=== PATIENT | female | born 1980 | race African-American/Black ===

== ENCOUNTER 2023-06-21 08:33 | Emergency (ER) | payer SELFPAY ==
[2023-06-21 10:38] LABS: CORONAVIRUS COVID-19 NAA NEGATIVE (NEGATIVE); INFLUENZA A NAA NEGATIVE (NEGATIVE); INFLUENZA B NAA POSITIVE (NEGATIVE); RESPIRATORY SYNCYTIAL VIR NAA NEGATIVE (NEGATIVE)
[2023-06-21] MEDS ORDERED: Ondansetron 4 MG/2 ML SDV IVPUSH ONE (10:46)
[2023-06-21] MEDS ORDERED: Sodium Chloride 0.9% 1,000 ML IV ONE (10:46)
[2023-06-21] MEDS ORDERED: traMADol 50 MG Tab PO ONE (10:47)
== END 2023-06-21 12:18 | disposition home or self-care (01) ==
LOC: MW.ED 08:33
DX: J10.1 Influenza due to other identified influenza virus with other respiratory manifestations (principal); I10 Essential (primary) hypertension; E11.9 Type 2 diabetes mellitus without complications; Z20.822 Contact with and (suspected) exposure to COVID-19; Z88.6 Allergy status to analgesic agent; Z91.013 Allergy to seafood; Z91.048 Other nonmedicinal substance allergy status; Z79.84 Long term (current) use of oral hypoglycemic drugs; Z79.899 Other long term (current) drug therapy
CPT/HCPCS: 0241U; 87651; 96361; 96374; 99283; A9270; J2405; J7030

== ENCOUNTER 2023-07-18 19:21 | Observation (INO) | payer OTHER ==
[2023-07-18 20:49] LABS: CORONAVIRUS COVID-19 NAA NEGATIVE (NEGATIVE); INFLUENZA A NAA NEGATIVE (NEGATIVE); INFLUENZA B NAA NEGATIVE (NEGATIVE); RESPIRATORY SYNCYTIAL VIR NAA NEGATIVE (NEGATIVE)
[2023-07-18] MEDS ORDERED: Sodium Chloride 0.9% 1,000 ML IV ONE ×2 (21:14→22:43)
[2023-07-18] MEDS ORDERED: Ondansetron 4 MG/2 ML SDV IVPUSH ONE (21:14)
[2023-07-18 21:38] LABS: BASOPHILS ABSOLUTE AUTO 0.03 K/uL (0.00-0.20); BASOPHILS PERCENT AUTO 0.7 % (0.0-1.0); EOSINOPHILS ABSOLUTE AUTO 0.05 K/uL (0.00-0.45); EOSINOPHILS PERCENT AUTO 1.1 % (0.0-6.0); HEMATOCRIT 30.1 % (37.0-47.0); HEMOGLOBIN 8.6 g/dL (12.0-16.0); IMMATURE GRAN ABSOLUTE AUTO 0.02 K/uL (0.00-0.05); IMMATURE GRAN PERCENT AUTO 0.4 % (0.0-0.4); LYMPHOCYTES ABSOLUTE AUTO 1.72 K/uL (1.00-4.80); LYMPHOCYTES PERCENT AUTO 37.4 % (24.0-44.0); MEAN CORPUSCULAR HEMOGLOBIN 19.6 pg (28.0-32.0); MEAN CORPUSCULAR HGB CONC 28.6 g/dL (32.0-36.0); MONOCYTES ABSOLUTE AUTO 0.45 K/uL (0.00-0.80); MONOCYTES PERCENT AUTO 9.8 % (0.0-8.0); NEUTROPHILS ABSOLUTE AUTO 2.33 K/uL (1.80-7.70); NEUTROPHILS PERCENT AUTO 50.6 % (41.0-71.0); PLATELET COUNT,PLT 339 K/uL (150-400); RED BLOOD CELL COUNT 4.38 M/uL (4.10-5.30)
[2023-07-18 21:52] LABS: HEMOGLOBIN A1C 11.9 %
[2023-07-18 22:03] LABS: A/G RATIO 0.9 (0.9-1.6); ALBUMIN 3.2 g/dL (3.4-5.0); BILIRUBIN TOTAL 0.3 mg/dL (0.2-1.0); CALCIUM 8.6 mg/dL (8.5-10.1); CARBON DIOXIDE,CO2 20.6 mmol/L (21.0-32.0); CREATININE 0.8 mg/dL (0.6-1.0); EST CRCL DRUG DOSING (CG) 93.35 mL/min; POTASSIUM,K 3.6 mmol/L (3.5-5.1); PROTEIN TOTAL,TP 6.8 g/dL (6.4-8.2)
[2023-07-18 22:18] LABS: BILIRUBIN,URINE NEGATIVE (NEGATIVE); COLOR,URINE YELLOW; GLUCOSE,URINE >=1000 mg/dL (NEGATIVE); KETONES,URINE >=80 mg/dL (NEGATIVE); LEUKOCYTE ESTERASE,URINE NEGATIVE (NEGATIVE); NITRITE,URINE NEGATIVE (NEGATIVE); OCCULT BLOOD,URINE MODERATE (NEGATIVE); PROTEIN,URINE NEGATIVE (NEGATIVE); UROBILINOGEN,URINE 0.2 EU/dL (<2.0)
[2023-07-18 22:25] LABS: MEAN CORPUSCULAR VOLUME 68.7 fL (83.0-99.0)
[2023-07-18 22:27] LABS: APPEARANCE,URINE SLT CLOUDY; BACTERIA,URINE FEW (NEGATIVE); EPITHELIAL CELLS,URINE FEW (NONE-FEW); RBC,URINE TOO NUMEROUS TO CT (0-2/HPF); WBC,URINE 0-2 (0-5/HPF)
[2023-07-18] MEDS ORDERED: Insulin Regular, Human 100 Units/ML 10 ML Vial IVPUSH ONE (23:16)
[2023-07-18] MEDS ORDERED: Glucagon,Human Recombinant 1 MG Vial IM PRN (23:16)
[2023-07-18] MEDS ORDERED: 50% Dextrose in Water 50 ML Syringe IVPUSH PRN (23:16)
[2023-07-18 23:40] LABS: BASE EXCESS ARTERIAL -8.6 (-2.0-3.0); BICARBONATE,ARTERIAL 17 mEq/L (22-26); PCO2 ARTERIAL 32 mmHG (35-45); PO2 ARTERIAL 102 mmHG (80-105)
[2023-07-19 01:05] LABS: CALCIUM 7.9 mg/dL (8.5-10.1); CARBON DIOXIDE,CO2 20.1 mmol/L (21.0-32.0); CREATININE 0.6 mg/dL (0.6-1.0); EST CRCL DRUG DOSING (CG) 124.47 mL/min; POTASSIUM,K 3.4 mmol/L (3.5-5.1)
[2023-07-19] MEDS ORDERED: Insulin Glargine,Hum.Rec.Anlog 100 UNIT/ML 3 ML Pen SUBCUT ONE (03:12)
[2023-07-19] MEDS ORDERED: Glucagon,Human Recombinant 1 MG Vial IM PRN (03:13)
[2023-07-19] MEDS ORDERED: 50% Dextrose in Water 50 ML Syringe IVPUSH PRN (03:13)
[2023-07-19 05:55] LABS: BASOPHILS ABSOLUTE AUTO 0.02 K/uL (0.00-0.20); BASOPHILS PERCENT AUTO 0.5 % (0.0-1.0); EOSINOPHILS ABSOLUTE AUTO 0.06 K/uL (0.00-0.45); EOSINOPHILS PERCENT AUTO 1.5 % (0.0-6.0); HEMATOCRIT 27.5 % (37.0-47.0); HEMOGLOBIN 7.8 g/dL (12.0-16.0); IMMATURE GRAN ABSOLUTE AUTO 0.01 K/uL (0.00-0.05); IMMATURE GRAN PERCENT AUTO 0.3 % (0.0-0.4); LYMPHOCYTES PERCENT AUTO 48.1 % (24.0-44.0); MEAN CORPUSCULAR HEMOGLOBIN 19.8 pg (28.0-32.0); MEAN CORPUSCULAR HGB CONC 28.4 g/dL (32.0-36.0); MEAN CORPUSCULAR VOLUME 69.8 fL (83.0-99.0); MEAN PLATELET VOLUME 9.8 fL (9.4-12.3); MONOCYTES ABSOLUTE AUTO 0.42 K/uL (0.00-0.80); MONOCYTES PERCENT AUTO 10.6 % (0.0-8.0); NEUTROPHILS ABSOLUTE AUTO 1.54 K/uL (1.80-7.70); PLATELET COUNT,PLT 297 K/uL (150-400); RED BLOOD CELL COUNT 3.94 M/uL (4.10-5.30); WHITE BLOOD CELL COUNT,WBC 3.95 K/uL (3.9-11.3)
[2023-07-19 06:19] LABS: CALCIUM 7.9 mg/dL (8.5-10.1); CARBON DIOXIDE,CO2 19.8 mmol/L (21.0-32.0); CREATININE 0.6 mg/dL (0.6-1.0); EST CRCL DRUG DOSING (CG) 124.47 mL/min; POTASSIUM,K 3.4 mmol/L (3.5-5.1)
[2023-07-19] MEDS: Insulin Aspart 100 Units/ML 3 ML Pen SUBCUT SCH ×3 (07:59→16:54)
[2023-07-19] MEDS ORDERED: metFORMIN 500 MG Tab.ER PO SCH (08:00)
[2023-07-19 14:22] LABS: PERCENT FE SATURATION 9.5 % (20-55)
[2023-07-19] MEDS ORDERED: Insulin Glargine,Hum.Rec.Anlog 100 UNIT/ML 3 ML Pen SUBCUT SCH (21:00)
[2023-07-20] MEDS ORDERED: Insulin Aspart 100 Units/ML 3 ML Pen SUBCUT ONE (00:30)
[2023-07-20 06:27] LABS: BASOPHILS ABSOLUTE AUTO 0.02 K/uL (0.00-0.20); BASOPHILS PERCENT AUTO 0.4 % (0.0-1.0); EOSINOPHILS ABSOLUTE AUTO 0.05 K/uL (0.00-0.45); EOSINOPHILS PERCENT AUTO 1.1 % (0.0-6.0); HEMATOCRIT 28.1 % (37.0-47.0); IMMATURE GRAN ABSOLUTE AUTO 0.02 K/uL (0.00-0.05); IMMATURE GRAN PERCENT AUTO 0.4 % (0.0-0.4); LYMPHOCYTES PERCENT AUTO 39.4 % (24.0-44.0); MEAN CORPUSCULAR HEMOGLOBIN 19.7 pg (28.0-32.0); MEAN CORPUSCULAR HGB CONC 28.5 g/dL (32.0-36.0); MEAN CORPUSCULAR VOLUME 69.2 fL (83.0-99.0); MEAN PLATELET VOLUME 10.3 fL (9.4-12.3); MONOCYTES ABSOLUTE AUTO 0.41 K/uL (0.00-0.80); NEUTROPHILS ABSOLUTE AUTO 2.27 K/uL (1.80-7.70); NEUTROPHILS PERCENT AUTO 49.7 % (41.0-71.0); PLATELET COUNT,PLT 316 K/uL (150-400); RED BLOOD CELL COUNT 4.06 M/uL (4.10-5.30); WHITE BLOOD CELL COUNT,WBC 4.57 K/uL (3.9-11.3)
[2023-07-20 06:43] LABS: CALCIUM 8.2 mg/dL (8.5-10.1); CARBON DIOXIDE,CO2 21.3 mmol/L (21.0-32.0); CREATININE 0.6 mg/dL (0.6-1.0); EST CRCL DRUG DOSING (CG) 124.47 mL/min; POTASSIUM,K 3.4 mmol/L (3.5-5.1)
[2023-07-20] MEDS ORDERED: Potassium Chloride 20 MEQ Tab.ER PO ONE (07:54)
[2023-07-20] MEDS: Insulin Aspart 100 Units/ML 3 ML Pen SUBCUT SCH ×2 (08:07→11:53)
[2023-07-20] MEDS ORDERED: Sodium Ferric Gluconate Cmplex 250 MG in Sodium Chloride 0.9% 100 ML IV ONE (09:08)
[2023-07-20] MEDS ORDERED: Magnesium Sulfate/Water 2 GM in Premix Bag 1 BAG IV ONE (09:08)
[2023-07-20] MEDS ORDERED: Topiramate 50 MG Tab PO SCH (09:30)
[2023-07-20] MEDS ORDERED: Folic Acid 1 MG Tab PO SCH (09:30)
[2023-07-20] MEDS ORDERED: Cholecalciferol (Vitamin D3) 25 MCG Tab PO SCH (09:30)
[2023-07-20] MEDS ORDERED: Doxazosin 2 MG Tab PO SCH (21:00)
== END 2023-07-20 15:18 | disposition home or self-care (01) ==
LOC: MW.ED 19:21 → MW.MS 07-19 01:58
PROVIDERS: ADMIT Internal Medicine; ATTEND Internal Medicine
DX: D50.9 Iron deficiency anemia, unspecified (principal); E11.65 Type 2 diabetes mellitus with hyperglycemia; I10 Essential (primary) hypertension; F41.9 Anxiety disorder, unspecified; E86.0 Dehydration; Z79.899 Other long term (current) drug therapy; Z91.018 Allergy to other foods; Z88.6 Allergy status to analgesic agent; Z88.9 Allergy status to unspecified drugs, medicaments and biological substances; Z20.822 Contact with and (suspected) exposure to COVID-19
CPT/HCPCS: 0241U; 36415; 36600; 80048; 80053; 81001; 82009; 82728; 82803; 82947; 83036; 83550; 83735; 84484; 85025; 93005; 96361; 96374; 99285; A9270; J1815; J2405; J2916; J3475; J3490; J7030; 93010; 96365; 96366; 96368; 96375; 99284; G0378

== ENCOUNTER 2025-01-09 14:35 | Emergency (ER) | payer MEDICAID ==
[2025-01-09 15:24] LABS: BASOPHILS ABSOLUTE AUTO 0.04 K/uL (0.00-0.20); BASOPHILS PERCENT AUTO 0.6 % (0.0-1.0); EOSINOPHILS ABSOLUTE AUTO 0.08 K/uL (0.00-0.45); EOSINOPHILS PERCENT AUTO 1.2 % (0.0-6.0); IMMATURE GRAN ABSOLUTE AUTO 0.02 K/uL (0.00-0.05); IMMATURE GRAN PERCENT AUTO 0.3 % (0.0-0.4); LYMPHOCYTES ABSOLUTE AUTO 1.97 K/uL (1.00-4.80); LYMPHOCYTES PERCENT AUTO 28.8 % (24.0-44.0); MEAN PLATELET VOLUME 9.3 fL (9.4-12.3); MONOCYTES ABSOLUTE AUTO 0.63 K/uL (0.00-0.80); MONOCYTES PERCENT AUTO 9.2 % (0.0-8.0); NEUTROPHILS ABSOLUTE AUTO 4.09 K/uL (1.80-7.70); NEUTROPHILS PERCENT AUTO 59.9 % (41.0-71.0); NRBC ABSOLUTE 0.00 K/uL (0.00-0.02); NRBC PERCENT 0.0 /100WBC (0.0-0.2); PLATELET COUNT,PLT 327 K/uL (150-400); RED BLOOD CELL COUNT 4.39 M/uL (4.10-5.30); WHITE BLOOD CELL COUNT,WBC 6.83 K/uL (3.9-11.3)
[2025-01-09 15:54] LABS: AMPHETAMINES SCREEN, URINE NEGATIVE (CUTOFF=500); BUPRENORPHINE SCREEN,URINE NEGATIVE (CUTOFF=10); METHADONE SCREEN, URINE NEGATIVE (CUTOFF=200); METHAMPHETAMINES SCREEN, URINE NEGATIVE (CUTOFF=500); OXYCODONE SCREEN,URINE NEGATIVE (CUT0FF=100); PCP SCREEN,URINE NEGATIVE (CUTOFF=25); THC SCREEN,URINE 20 NG/ML NEGATIVE (CUTOFF=50)
[2025-01-09 15:56] LABS: A/G RATIO 0.9 (0.9-1.6); ALANINE AMINOTRANSFERASE,ALT 23 IU/L (14-63); ASPARTATE AMNIOTRANSFERASE,AST 16 IU/L (15-37); BILIRUBIN TOTAL 0.4 mg/dL (0.2-1.0); BLOOD UREA NITROGEN,BUN 11 mg/dL (7.0-18.0); CARBON DIOXIDE,CO2 24.2 mmol/L (21.0-32.0); CHLORIDE,CL 98 mmol/L (98-107); CREATININE 0.8 mg/dL (0.6-1.0); EST CRCL DRUG DOSING (CG) 91.47 mL/min; ETHANOL BLOOD MEDICAL <3 mg/dL; GLUCOSE RANDOM 430 mg/dL (74-106); POTASSIUM,K 4.0 mmol/L (3.5-5.1); PROTEIN TOTAL,TP 6.5 g/dL (6.4-8.2); SODIUM,NA 131 mmol/L (136-145); TSH ULTRASENSITIVE 1.17 uIU/mL (0.36-3.74)
[2025-01-09 15:58] LABS: ESTIMATED GFR 94 mL/min (>60)
== END 2025-01-09 21:02 ==
LOC: MW.ED 14:35
DX: R45.851 Suicidal ideations (principal); D64.9 Anemia, unspecified; R73.9 Hyperglycemia, unspecified; F17.210 Nicotine dependence, cigarettes, uncomplicated; Z88.6 Allergy status to analgesic agent; Z88.8 Allergy status to other drugs, medicaments and biological substances; Z91.013 Allergy to seafood; Z91.018 Allergy to other foods; Z79.84 Long term (current) use of oral hypoglycemic drugs; Z79.899 Other long term (current) drug therapy
CPT/HCPCS: 36415; 80053; 80143; 80179; 80305; 80307; 81025; 83036; 83735; 84443; 85025; 99283; 99285; A9270-GY

== ENCOUNTER 2025-05-25 13:47 | Observation (INO) | payer MEDICAID ==
[2025-05-25] MEDS ORDERED: 50% Dextrose in Water 50 ML Syringe IVPUSH PRN ×2 (13:58→17:22)
[2025-05-25 14:04] LABS: BASE EXCESS VENOUS -1.3 (-2.0-3.0); BICARBONATE,VENOUS 22.0 mEq/L (22-29); PCO2 VENOUS 33.0 mmHG (41-51); PH,VENOUS 7.44 (7.32-7.43); PO2 VENOUS 53.0 mmHG (35-45)
[2025-05-25 14:12] LABS: BASOPHILS ABSOLUTE AUTO 0.06 K/uL (0.00-0.20); BASOPHILS PERCENT AUTO 0.6 % (0.0-1.0); EOSINOPHILS ABSOLUTE AUTO 0.07 K/uL (0.00-0.45); EOSINOPHILS PERCENT AUTO 0.7 % (0.0-6.0); IMMATURE GRAN ABSOLUTE AUTO 0.03 K/uL (0.00-0.05); IMMATURE GRAN PERCENT AUTO 0.3 % (0.0-0.4); LYMPHOCYTES ABSOLUTE AUTO 3.38 K/uL (1.00-4.80); LYMPHOCYTES PERCENT AUTO 35.7 % (24.0-44.0); MEAN PLATELET VOLUME 10.3 fL (9.4-12.3); MONOCYTES ABSOLUTE AUTO 0.65 K/uL (0.00-0.80); MONOCYTES PERCENT AUTO 6.9 % (0.0-8.0); NEUTROPHILS ABSOLUTE AUTO 5.27 K/uL (1.80-7.70); NEUTROPHILS PERCENT AUTO 55.8 % (41.0-71.0); NRBC ABSOLUTE 0.00 K/uL (0.00-0.02); NRBC PERCENT 0.0 /100WBC (0.0-0.2); PLATELET COUNT,PLT 481 K/uL (150-400); RED BLOOD CELL COUNT 4.71 M/uL (4.10-5.30); WHITE BLOOD CELL COUNT,WBC 9.46 K/uL (3.9-11.3)
[2025-05-25 14:27] LABS: A/G RATIO 1.0 (0.9-1.6); ALANINE AMINOTRANSFERASE,ALT 16 IU/L (14-63); ASPARTATE AMNIOTRANSFERASE,AST 14 IU/L (15-37); BILIRUBIN TOTAL 0.7 mg/dL (0.2-1.0); BLOOD UREA NITROGEN,BUN 12 mg/dL (7.0-18.0); CARBON DIOXIDE,CO2 20.4 mmol/L (21.0-32.0); CHLORIDE,CL 97 mmol/L (98-107); CREATININE 0.8 mg/dL (0.6-1.0); GLUCOSE RANDOM 425 mg/dL (74-106); POTASSIUM,K 3.1 mmol/L (3.5-5.1); PROTEIN TOTAL,TP 7.4 g/dL (6.4-8.2); SODIUM,NA 134 mmol/L (136-145)
[2025-05-25 14:30] LABS: ESTIMATED GFR 94 mL/min (>60)
[2025-05-25] MEDS: Magnesium Sulfate 2 GM/50 mL 2 GM in Premix Bag 1 BAG IV ONE (14:46)
[2025-05-25] MEDS: levETIRAcetam 500 MG/5 ML SDV IVPUSH ONE (14:46)
[2025-05-25] MEDS: Insulin Regular, Human 100 Units/ML 10 ML Vial IVPUSH ONE (14:49)
[2025-05-25] MEDS: levETIRAcetam 500 MG/5 ML SDV ONE (14:53)
[2025-05-25] MEDS: LORazepam 2 MG/ML SDV ONE (14:53)
[2025-05-25] MEDS: Insulin Regular, Human 100 Units/ML 10 ML Vial ONE (14:53)
[2025-05-25] MEDS: LORazepam 2 MG/ML SDV IVPUSH ONE ×2 (14:54)
[2025-05-25] MEDS ORDERED: Potassium Chloride 20 MEQ in Premix Bag 2 BAG IV ONE (14:57)
[2025-05-25 15:15] LABS: APPEARANCE,URINE CLEAR; GLUCOSE,URINE >=1000 mg/dL (NEGATIVE); OCCULT BLOOD,URINE NEGATIVE (NEGATIVE)
[2025-05-25] MEDS ORDERED: Ondansetron 4 MG/2 ML SDV IVPUSH PRN (18:12)
[2025-05-25] MEDS ORDERED: Sodium Chloride 0.9% 2.5 ML Syringe FLUSH PRN (18:12)
[2025-05-25] MEDS ORDERED: Sodium Chloride 0.9% 10 ML Syringe FLUSH PRN (18:12)
[2025-05-25] MEDS ORDERED: LORazepam 2 MG/ML SDV IV PRN (18:12)
[2025-05-25] MEDS: levETIRAcetam 500 MG/5 ML SDV IVPUSH SCH (21:46)
[2025-05-25] MEDS: Insulin Glargine,Human Rec. Analog 100 Units/ML 3 ML Pen SUBCUT SCH (21:46)
[2025-05-26 05:39] LABS: BASOPHILS ABSOLUTE AUTO 0.03 K/uL (0.00-0.20); BASOPHILS PERCENT AUTO 0.5 % (0.0-1.0); EOSINOPHILS ABSOLUTE AUTO 0.07 K/uL (0.00-0.45); EOSINOPHILS PERCENT AUTO 1.2 % (0.0-6.0); IMMATURE GRAN ABSOLUTE AUTO 0.02 K/uL (0.00-0.05); IMMATURE GRAN PERCENT AUTO 0.3 % (0.0-0.4); LYMPHOCYTES ABSOLUTE AUTO 1.97 K/uL (1.00-4.80); LYMPHOCYTES PERCENT AUTO 34.1 % (24.0-44.0); MEAN PLATELET VOLUME 10.3 fL (9.4-12.3); MONOCYTES ABSOLUTE AUTO 0.48 K/uL (0.00-0.80); MONOCYTES PERCENT AUTO 8.3 % (0.0-8.0); NEUTROPHILS ABSOLUTE AUTO 3.20 K/uL (1.80-7.70); NEUTROPHILS PERCENT AUTO 55.6 % (41.0-71.0); NRBC ABSOLUTE 0.00 K/uL (0.00-0.02); NRBC PERCENT 0.0 /100WBC (0.0-0.2); PLATELET COUNT,PLT 308 K/uL (150-400); RED BLOOD CELL COUNT 4.07 M/uL (4.10-5.30); WHITE BLOOD CELL COUNT,WBC 5.77 K/uL (3.9-11.3)
[2025-05-26 06:12] LABS: BLOOD UREA NITROGEN,BUN 7.0 mg/dL (7.0-18.0); CARBON DIOXIDE,CO2 21.4 mmol/L (21.0-32.0); CHLORIDE,CL 105.0 mmol/L (98-107); CREATININE 0.4 mg/dL (0.6-1.0); EST CRCL DRUG DOSING (CG) 176.35 mL/min; GLUCOSE RANDOM 216.0 mg/dL (74-106); POTASSIUM,K 4.1 mmol/L (3.5-5.1); SODIUM,NA 136.0 mmol/L (136-145)
[2025-05-26 06:15] LABS: ESTIMATED GFR 126.0 mL/min (>60)
== END 2025-05-26 12:50 | disposition home or self-care (01) ==
LOC: MW.ED 13:47 → MW.MS 16:06
PROVIDERS: ADMIT Internal Medicine; ATTEND Internal Medicine
DX: R56.9 Unspecified convulsions (principal); E11.65 Type 2 diabetes mellitus with hyperglycemia; E66.9 Obesity, unspecified; E83.42 Hypomagnesemia; D50.9 Iron deficiency anemia, unspecified; I10 Essential (primary) hypertension; F17.210 Nicotine dependence, cigarettes, uncomplicated; Z79.4 Long term (current) use of insulin; Z88.8 Allergy status to other drugs, medicaments and biological substances; Z79.82 Long term (current) use of aspirin; Z79.84 Long term (current) use of oral hypoglycemic drugs; Z79.899 Other long term (current) drug therapy; Z91.018 Allergy to other foods
CPT/HCPCS: 36415; 70450; 71045; 80048; 80053; 81003; 82009; 82803; 82947; 83036; 83735; 84703; 85025; 93005; A9270; J1815; J1953; J2060; J3475; J3480; J7030; 99223; 99239; 99284